=== PATIENT | male | born 1995 | race Caucasian/White ===

== ENCOUNTER 2017-07-26 18:45 | Emergency (ER) | payer SELFPAY ==
[~2017-07-26] VITALS: Ht 190.5 cm; Wt 136.1 kg
[2017-07-26] MEDS ORDERED: methylPREDNISolone SOD SUCC PF 125 MG/2 ML VIAL. IV ONE (19:30)
[2017-07-26] MEDS ORDERED: FAMOTIDINE 20 MG/2 ML VIAL IVP ONE (19:30)
--- NOTE | 2017-07-26 19:33 | PHYS DOC ---
Past Medical History Past Medical History: No Pertinent History Past Surgical History: Tonsillectomy Alcohol Use: Occasionally Drug Use: None Adult General Chief Complaint Chief Complaint: ALLERGIC REACTION HPI HPI Patient is a 22 year old [id number] male with history of stress or urticaria presents with written hives for the past 2 weeks. Patient states symptoms began after switching clothes detergent. No shortness or breath, wheezing or history of asthma. Patient's been taking Benadryl 3 times daily for symptoms. Last took Benadryl 3 hours prior to ED arrival. No other acute symptoms or complaints [] Review of Systems Review of Systems ROS as per HPI. Current Medications Current Medications Current Medications Medications (Trade) Dose Ordered Sig/Farhana Start Time Stop Time Status Last Admin Dose Admin Famotidine (Pepcid) 20 mg 1X ONCE 07/26/17 19:30 07/26/17 19:31 DC 07/26/17 19:28 20 MG Methylprednisolone Sodium Succinate (SOLU-Medrol 125MG VIAL) 125 mg 1X ONCE 07/26/17 19:30 07/26/17 19:31 DC 07/26/17 19:29 125 MG Allergies Allergies Allergies Coded Allergies Type Severity Reaction Last Updated Verified Latex, Natural Rubber Allergy Intermediate 07/26/17 No Penicillins Allergy Intermediate 07/26/17 No Physical Exam Physical Exam Constitutional: Well developed, well nourished, no acute distress, non-toxic appearance. [] HENT: Normocephalic, atraumatic, bilateral external ears normal, No oropharyngeal swelling. [] Eyes: PERRLA, EOMI, conjunctiva normal, no discharge. [] Neck: Normal range of motion, no tenderness, supple, no stridor. [] Cardiovascular:Heart rate regular rhythm, no murmur [] Lungs & Thorax: Bilateral breath sounds clear to auscultation, no wheezing [] Abdomen: Bowel sounds normal, soft, no tenderness, no masses, no pulsatile masses. [] Skin: Urticaria involving face and upper torso. [] Neurologic: Alert and oriented X 3, normal motor function, normal sensory function, no focal deficits noted. [] Psychologic: Affect normal, judgement normal, mood normal. [] Current Patient Data Vital Signs Vital Signs Date Time Temp Pulse Resp B/P (MAP) Pulse Ox O2 Delivery O2 Flow Rate FiO2 07/26/17 20:30 92 150/78 (102) 98 Room Air 07/26/17 18:50 98.0 20 98.0 EKG EKG [] Radiology/Procedures Radiology/Procedures [] Course & Med Decision Making Course & Med Decision Making Pertinent Labs and Imaging studies reviewed. (See chart for details) [Urtica significantly improved with treatment. Recommend limiting new allergic exposures with PCP follow-up. Return precautions reviewed. Patient verbalizes understanding and agreement with discharge instructions prior to departure. Dragon Disclaimer Dragon Disclaimer This electronic medical record was generated, in whole or in part, using a voice recognition dictation system. Departure Departure Impression: Primary Impression: Urticaria Disposition: HOME, SELF-CARE Condition: Referrals: NO PCP (PCP) EDUARDO HARRELL DO Jul 26, 2017 19:33
[2017-07-26 20:30] VITALS: BP 150/78
== END 2017-07-26 20:53 | disposition home or self-care (01) ==
LOC: ER 18:45
DX: L50.0 Allergic urticaria (principal); Z91.040 Latex allergy status; Z88.0 Allergy status to penicillin
CPT/HCPCS: 96374; 96375; 99284; J2930; S0028